=== PATIENT | female | born 1975 | race Caucasian/White ===

== ENCOUNTER → 2017-11-30 | Outpatient (CLI) | payer MEDICAID | LOC: FIMAGING 11:34 | PROVIDERS: ATTEND Advanced Practice Midwife | DX: O09.522 Supervision of elderly multigravida, second trimester (principal); Z3A.20 20 weeks gestation of pregnancy ==

== ENCOUNTER 2018-04-26 04:42 | Inpatient (IN) | payer MEDICAID ==
[2018-04-26] MEDS ORDERED: IBUPROFEN 600 MG TAB PO PRN (05:37)
[2018-04-26] MEDS ORDERED: EPSOM SALT 454 GM TP PRN (05:37)
[2018-04-26] MEDS ORDERED: LIDOCAINE 1% 300 MG/30 ML SDV SC PRN (05:37)
[2018-04-26] MEDS ORDERED: TERBUTALINE SULFATE 1 MG/ML VIAL IV PRN (05:37)
[2018-04-26] MEDS ORDERED: MISOPROSTOL 200 MCG TAB PR PRN (05:37)
[2018-04-26] MEDS ORDERED: LR 1,000 ML IV PRN (05:37)
[2018-04-26] MEDS ORDERED: OXYTOCIN/RINGERS LACTATE 1,000 ML IV PRN (05:37)
[2018-04-26] MEDS ORDERED: OLIVE OIL 118 ML BTL MISC PRN (05:37)
[2018-04-26 05:54] LABS: PLATELET COUNT 217 10^3/uL (150-400)
[2018-04-26] MEDS ORDERED: TERBUTALINE SULFATE 1 MG/ML VIAL ONE (06:19)
[2018-04-26] MEDS ORDERED: MISOPROSTOL 200 MCG TAB ONE (06:19)
[2018-04-26] MEDS ORDERED: OLIVE OIL 118 ML BTL ONE (06:19)
[2018-04-26] MEDS ORDERED: OXYTOCIN 10 UNIT/ML VIAL ONE (06:19)
[2018-04-26] MEDS ORDERED: LIDOCAINE 1% 300 MG/30 ML SDV ONE (06:19)
[2018-04-26] MEDS ORDERED: AMMONIA AROMATIC 1 EACH AMP IH ONE (06:19)
[2018-04-26] MEDS ORDERED: DOCUSATE SODIUM 100 MG CAP PO PRN (08:09)
[2018-04-26] MEDS ORDERED: HYDROCORTISONE 0.5% CREAM TP PRN (08:09)
[2018-04-26] MEDS ORDERED: SIMETHICONE 80 MG TAB CHEW PO PRN (08:09)
--- NOTE | 2018-04-26 08:11 | PDGENHP ---
History and Physical History and Physical: Care: [facility] HPI: Patient is a 43 yo with IUP@ 41-2 weeks that presents to L&D with complaints of contractions throughout the night, worse since 0200. She denies any LOF, Vb. She reports +FM. EDC: 04/17/18 which is based on LMP: 07/11/17 which is known and consistent with Ultrasound at 10 weeks. Her is complicated by: AMA, BMI 19, anemia Review of Systems: Constitutional: Denies any fever, chills, or fatigue HEENT: denies any visual changes, difficulty swallowing, hearing loss Cardiovascular: Denies any chest pain, palpitations, leg swelling Respiratory: denies any cough, wheezing, or shortness of breathe GI: Denies any nausea, vomiting, diarrhea, constipation : denies any dysuria, urgency, frequency, vaginal bleeding Musculoskeletal: denies any muscle or bone pain Skin: denies any rashes Neuro: denies any headache, seizures, lightheadedness, dizziness, or loss of consciousness Psychiatric: denies any depression, anxiety, or SI/HI thoughts HISTORY: Previous OB history: x1 Past medical history: anemia (during ) Past surgical history: oral surgery Social: Denies any alcohol, tobacco, or drug use. Family history: Not relevant Medications: PNV, iron, vitamin D, DHA Allergies (list reaction): NKDA LABS: Rh: B+ ABS: Neg Rubella: Immune HbsAg: NR HIV: NR VDRL: NR 1hr: 55 GC: Neg Chlamydia: Neg Pap: Normal GBS: negative BMI: (prepreg) [19 PHYSICAL EXAM: Constitutional: WN, A&Ox3 HEENT: normocephalic atraumatic, supple Skin: Warm, dry, intact Heart: RRR, no murmur Chest: CTA-B Abdomen: Soft, nontender, gravid SVE: 7/90/0 Extremities: trace edema, negative homans sign Neuro: grossly normal Psych: normal affect assessment: FHT baseline 130 +accels, no decels, moderate variability Contractions: toco q q4-6 Assessment: 1) [id number] with IUP@41-2wks 2) active labor 3) GBS negative 4) Cat 1 FHR tracing Plan: 1) Admit to L&D 2) anticipate Today's visit was approximately 30 min, of which >50% of visit 20 min, was spent face to face with pt on direct counseling/coordination of care.
--- NOTE | 2018-04-26 08:13 | OBDEL ---
Info Type: Vaginal Presentation at Delivery: Vertex L&D Analgesia/Anesthesia Type: None GBS+: No Indications for Delivery: Spontaneous Labor, SROM Vaginal Delivery - Delivery Provider Delivery Physician/CNM: Yohana La - Labor and Delivery Onset of Contractions Date: 04/26/18 Onset of Contractions Time: 02:30 Onset of Contractions Type: Spontaneous Rupture of Membranes Date: 04/26/18 Rupture of Membranes Type: Spontaneous Amniotic Fluid Color: Clear Dilation Complete Date: 04/26/18 Placenta Delivery Date: 04/26/18 Laceration: 1st Degree Repair: 3-0, Vicryl Vaginal Sponge Count Correct: Yes Vaginal Needle Count Correct: Yes Vaginal Sweep Performed: Yes EBL: 100 Delivery Comment: delivered standing up in tub. [place] Data [facility]AMS: 04/17/18 Gestational Age: 41 week(s) and 2 day(s) [place] Delivery Date: 04/26/18 Sex of Infant: Male Score (1 Min): 8 Score (5 Min): 9 ICD10 Worksheet Patient Problems: Problems Problem Status Onset (spontaneous vaginal delivery) Acute - ICD10 Problem Qualifiers (1) (spontaneous vaginal delivery)
[2018-04-26] MEDS: IBUPROFEN 600 MG TAB PO SCH ×2 (14:36→20:49)
[2018-04-26] MEDS: ACETAMINOPHEN 325 MG TAB PO SCH ×3 (16:26→20:50)
[2018-04-27] MEDS: IBUPROFEN 600 MG TAB PO SCH ×2 (01:19→05:59)
[2018-04-27] MEDS: ACETAMINOPHEN 325 MG TAB PO SCH (05:59)
[2018-04-27 08:06] VITALS: BP 88/67
--- NOTE | 2018-04-27 09:42 | OBPP ---
Progress Note Assessment/Plan: Assessment: 1. . 2. PP day 1. 3. Breast feeding mom. Plan: 04/27/18 09:38 1. Awaiting bili results for baby. 2. Continue PP care. Subjective/ Course: 04/27/18 09:40 Breast feeding well, occasional light-headedness when standing. Mom ambulating , voiding w/o difficulty. Pain management effective with ibuprofen. Plan d/c home today or tomorrow, pending bili levels on baby. Objective: 04/26/18 05:45 Patient ABO/Rh B POSITIVE 04/26/18 05:45 Temp Pulse Resp BP Pulse Ox 36.4 C 90 16 88/67 L 97 04/27/18 08:00 04/27/18 08:00 04/27/18 08:00 04/27/18 08:00 04/27/18 08:00 Uterine Position/Fundal Height: Umbilicus -1 Uterine Tone: Firm
--- NOTE | 2018-04-27 11:03 | OBGCSDC ---
General Delivery Information - General Info : 2 Para: 2 Abortions: 0 Type: Vaginal L&D Analgesia/Anesthesia Type: None Admission Date: 04/26/18 Labs: Patient ABO/Rh B POSITIVE 04/26/18 05:45 Hct 37.9 % (38.0-47.0) L 04/26/18 05:45 - Hospital Course : 04/27/18 09:40 Breast feeding well, occasional light-headedness when standing. Mom ambulating , voiding w/o difficulty. Pain management effective with ibuprofen. Plan d/c home today or tomorrow, pending bili levels on baby. 04/27/18 11:03 Bili levels wnl. D/C home today. Vaginal - Delivery Provider Delivery Physician/CNM: Yohana La - Diagnosis Labor: Spontaneous Rupture of Membranes Type: Spontaneous Amniotic Fluid Color: Clear Laceration: 1st Degree Repair: 3-0, Vicryl - Delivery EBL: 100 [place] Data ADAMS: 04/17/18 Gestational Age: 41 week(s) and 3 day(s) Gonzalez Delivery Date: 04/26/18 Delivery Time: 07:25 Sex of : Male [place] Weight (gm): 3138 g Score (1 Min): 8 Score (5 Min): 9
== END 2018-04-27 14:00 | disposition home or self-care (01) | DRG 560 ==
LOC: FLD 04:42 → OBSVTOIN 05:39 → FOB 10:19
PROVIDERS: ADMIT Advanced Practice Midwife; ATTEND Advanced Practice Midwife
PROC: 0HQ9XZZ Repair Perineum Skin, External Approach (ICD-10-PCS; principal; 2018-04-26)
PROC: 10E0XZZ Delivery of Products of Conception, External Approach (ICD-10-PCS; principal; 2018-04-26)
DX: O99.02 Anemia complicating childbirth (principal); D64.9 Anemia, unspecified; O70.0 First degree perineal laceration during delivery; Z37.0 Single live birth; Z3A.41 41 weeks gestation of pregnancy; Z68.1 Body mass index [BMI] 19.9 or less, adult
CPT/HCPCS: J2590; J3105